=== PATIENT | female | born 1955 | race Caucasian/White ===

== ENCOUNTER 2019-09-08 03:31 | Observation (INO) ==
[2019-09-08] MEDS ORDERED: 0.9 % Sodium Chloride 1,000 ML IVC ONE (04:09)
[2019-09-08] MEDS ORDERED: Ondansetron 4 MG/2 ML VIAL IVP ONE (04:09)
[2019-09-08 04:31] LABS: White Blood Count 6.5 K/mcL (4.3-11.1)
[2019-09-08 04:32] LABS: Basophils % 0.5 %; Eosinophils # 0.1 K/mcL (0.0-0.6); Eosinophils % 1.4 %; Hemoglobin 11.9 g/dL (11.5-15.4); Immature Granulocytes % 0.9 % (0-4); Lymphocytes # 1.7 K/mcL (0.6-4.6); Lymphocytes % 26.4 %; Mean Corpuscular Hemoglobin 28.1 pg (28.0-33.3); Mean Corpuscular Volume 82.7 fL (83.0-100.0); Mean Platelet Volume 10.1 fL (9.4-12.4); Monocytes # 0.8 K/mcL (0.0-1.3); Monocytes % 12.1 %; Neutrophils # 3.8 K/mcL (1.6-8.9); Platelet Count 196 K/mcL (140-400); Red Blood Count 4.23 M/mcL (3.82-4.97); Red Cell Distribution Width 14.4 % (11.5-14.5); Segmented Neutrophils % 58.7 %
[2019-09-08 04:36] LABS: VBG HCO3 26 mEq/L (21-27); VBG PCO2 32 mmHg (41-51); VBG PH 7.53 pH Units (7.32-7.42); VBG PO2 44 mmHg (25-50)
[2019-09-08 04:45] LABS: Bilirubin,Urine Negative (Negative); Blood,Urine Negative (Negative); Clarity,Urine Clear (Clear); Color,Urine Yellow (Yellow); Glucose,Urine (UA) 500 mg/dL (Normal); Ketones,Urine Negative (Negative); Leukocyte Esterase,Urine Negative (Negative); Nitrite,Urine Negative (Negative); PH,Urine 8.5 pH Units (5.0-8.0); Protein,Urine Negative (Neg-Trace); Specific Gravity,Urine 1.015 (1.010-1.025); Urobilinogen,Urine Normal (Normal)
[2019-09-08 05:09] LABS: Alanine Aminotransferase 10 Units/L (7-52); Albumin 3.6 g/dL (3.5-5.7); Albumin/Globulin Ratio 1.2 (1.1-2.2); Alkaline Phosphatase 49 Units/L (34-104); Amylase 30 Units/L (29-103); Aspartate Amino Transferase 12 Units/L (13-39); BUN/Creatinine Ratio 22 (6-26); Bilirubin,Direct 0.1 mg/dL (0.0-0.2); Bilirubin,Indirect 0.4 mg/dL (0.0-1.0); Bilirubin,Total 0.5 mg/dL (0.3-1.0); Blood Urea Nitrogen 17 mg/dL (8-23); Calcium 9.1 mg/dL (8.6-10.3); Carbon Dioxide 27 mEq/L (23-29); Chloride 93 mEq/L (98-107); Globulin 2.9 g/dL (2.4-3.5); Glucose 514 mg/dL (70-105); Lipase 40 Units/L (11-82); Osmolality,Calculated 289 (280-300); Potassium 4.1 mEq/L (3.5-5.1); Sodium 127 mEq/L (136-145); Total Protein 6.5 g/dL (6.4-8.9); eGFR For African Americans > 60 (> 60); eGFR For Non-African Americans > 60 (> 60)
[2019-09-08] MEDS ORDERED: Insulin Human Regular 8 UNIT in 0.9 % Sodium Chloride 10 ML IV ONE (05:12)
[2019-09-08] MEDS ORDERED: Insulin Human Regular 10 UNIT in 0.9 % Sodium Chloride 10 ML IV ONE (06:49)
[2019-09-08] MEDS ORDERED: methylPREDNISolone 125 MG in 0.9 % Sodium Chloride 100 ML IVPB ONE (06:52)
[2019-09-08] MEDS ORDERED: methylPREDNISolone 125 MG/2 ML VIAL IVP ONE (07:00)
[2019-09-08] MEDS ORDERED: Naloxone 0.4 MG/ML INJ IVP PRN (08:07)
[2019-09-08] MEDS ORDERED: Ondansetron 4 MG/2 ML VIAL IVP PRN (08:07)
[2019-09-08] MEDS: 0.9 % Sodium Chloride 1,000 ML IVC SCH ×2 (08:30→16:46)
[2019-09-08] MEDS ORDERED: *HR* Dextrose 50 % in Water (Syg) 50 ML SYRINGE IVP PRN (09:42)
[2019-09-08] MEDS ORDERED: Dextrose Gel 15 GM/37.5 ML TUBE PO PRN ×2 (09:42)
[2019-09-08] MEDS ORDERED: D5% in Water 1,000 ML IVC PRN (09:42)
[2019-09-08] MEDS: Insulin LISPRO 300 UNITS/3 ML VIAL SQ SCH ×4 (10:31→17:09)
[2019-09-08] MEDS ORDERED: Insulin LISPRO 300 UNITS/3 ML VIAL SQ SCH ×2 (21:00)
[2019-09-08] MEDS: Apixaban 5 MG TABLET PO SCH (21:46)
[2019-09-09] MEDS: Insulin LISPRO 300 UNITS/3 ML VIAL SQ SCH ×3 (05:07→17:40)
[2019-09-09] MEDS: *HR* Labetalol 20 MG/4 ML SYRINGE IVP PRN (05:07)
[2019-09-09] MEDS: Apixaban 5 MG TABLET PO SCH ×2 (07:57→20:28)
[2019-09-09] MEDS ORDERED: Insulin LISPRO 300 UNITS/3 ML VIAL SQ ONE (14:06)
[2019-09-09] MEDS: Insulin DETEMIR 100 UNIT/ML X5UNITS SQ SCH (20:33)
[2019-09-10] MEDS: *HR* Labetalol 20 MG/4 ML SYRINGE IVP PRN
[2019-09-10] MEDS: Insulin LISPRO 300 UNITS/3 ML VIAL SQ SCH ×2 (05:55)
[2019-09-10 09:55] VITALS: BP 121/70
[2019-09-10] MEDS: Insulin DETEMIR 100 UNIT/ML X5UNITS SQ SCH (09:55)
[2019-09-10] MEDS: Apixaban 5 MG TABLET PO SCH (09:55)
== END 2019-09-10 11:35 | disposition home or self-care (01) ==
LOC: INPGRE 03:31 → EMEROOGRE 03:31 → INPGRE 07:58
PROVIDERS: ADMIT Family Medicine; ATTEND Family Medicine

== ENCOUNTER 2021-06-30 10:07 | Inpatient (IN) ==
[2021-06-30 11:13] LABS: Basophils % 0.5 %; Eosinophils # 0.5 K/mcL (0.0-0.6); Eosinophils % 6.1 %; Hematocrit 37.5 % (35.3-44.9); Hemoglobin 12.4 g/dL (11.5-15.4); Immature Granulocytes % 0.6 % (0-4); Lymphocytes % 24.2 %; Mean Corpuscular HGB Conc 33.1 g/dL (31.6-35.5); Mean Corpuscular Hemoglobin 27.7 pg (28.0-33.3); Mean Corpuscular Volume 83.9 fL (83.0-100.0); Mean Platelet Volume 10.5 fL (9.4-12.4); Monocytes # 0.6 K/mcL (0.0-1.3); Monocytes % 7.2 %; Platelet Count 204 K/mcL (140-400); Red Blood Count 4.47 M/mcL (3.82-4.97); Red Cell Distribution Width 13.8 % (11.5-14.5); Segmented Neutrophils % 61.4 %; White Blood Count 8.1 K/mcL (4.3-11.1)
[2021-06-30 11:21] LABS: INR 1.1; Prothrombin Time 12.2 Seconds (9.4-12.1)
[2021-06-30 11:24] LABS: Activated Partial Thrombo Time 27.3 Seconds (26.0-36.0)
[2021-06-30 11:55] LABS: Alanine Aminotransferase 8 Units/L (7-52); Albumin 3.5 g/dL (3.5-5.7); Albumin/Globulin Ratio 0.9 (1.1-2.2); Alkaline Phosphatase 73 Units/L (34-104); Aspartate Amino Transferase 9 Units/L (13-39); BUN/Creatinine Ratio 29 (6-26); Bilirubin,Total 0.6 mg/dL (0.3-1.0); Blood Urea Nitrogen 21 mg/dL (8-23); Calcium 8.9 mg/dL (8.6-10.3); Carbon Dioxide 24 mEq/L (23-29); Chloride 96 mEq/L (98-107); Globulin 3.8 g/dL (2.4-3.5); Glucose 457 mg/dL (70-105); Magnesium 1.6 mg/dL (1.6-2.6); Osmolality,Calculated 291 (280-300); Phosphorous 2.5 mg/dL (2.7-4.5); Sodium 129 mEq/L (136-145); Total Protein 7.3 g/dL (6.4-8.9); eGFR For African Americans > 60 (> 60); eGFR For Non-African Americans > 60 (> 60)
[2021-06-30] MEDS ORDERED: 0.9 % Sodium Chloride 1,000 ML IV ONE (12:19)
[2021-06-30] MEDS ORDERED: Insulin Human Regular 10 UNIT in 0.9 % Sodium Chloride 10 ML IV ONE (12:19)
[2021-06-30] MEDS ORDERED: levoFLOXacin 750 MG/150 ML 750 MG/150 ML BAG IVPB SCH (12:30)
[2021-06-30] MEDS ORDERED: hydrOXYzine pamoate 25 MG CAPSULE PO STA (12:34)
[2021-06-30] MEDS ORDERED: Isovue-370 500 ML BOTTLE IVP ONE (13:37)
[2021-06-30] MEDS ORDERED: Mag Hydrox/Al Hydrox/Simeth 30 ML UDC PO PRN (14:16)
[2021-06-30] MEDS ORDERED: Melatonin 3 MG TABLET PO PRN (14:16)
[2021-06-30] MEDS ORDERED: Ondansetron 4 MG/2 ML VIAL IVP PRN (14:16)
[2021-06-30] MEDS ORDERED: Ondansetron ODT 4 MG TAB.RAPDIS SL PRN (14:16)
[2021-06-30] MEDS ORDERED: Naloxone 0.4 MG/ML INJ IVP PRN (14:16)
[2021-06-30] MEDS ORDERED: MOM Conc 10 ML UD.LIQ PO PRN (14:16)
[2021-06-30] MEDS ORDERED: *HR* Dextrose 50 % in Water (Syg) 50 ML SYRINGE IVP PRN (14:22)
[2021-06-30] MEDS ORDERED: Dextrose Gel 15 GM/37.5 ML TUBE PO PRN ×2 (14:22)
[2021-06-30] MEDS ORDERED: D5% in Water 1,000 ML IVC PRN (14:22)
[2021-06-30] MEDS ORDERED: Vancomycin 1,250 MG/262.5 ML IV.SOLN IVPB SCH (15:00)
[2021-06-30] MEDS ORDERED: Piperacillin/Tazobactam 3.375 GM in 0.9 % Sodium Chloride Mini Bag 100 ML IVPB SCH (16:00)
[2021-06-30] MEDS ORDERED: Insulin LISPRO 300 UNITS/3 ML VIAL SUBQ SCH (17:00)
[2021-06-30] MEDS: 0.9 % Sodium Chloride 1,000 ML IVC SCH (17:15)
[2021-06-30] MEDS: Insulin LISPRO 300 UNITS/3 ML VIAL SUBQ SCH ×2 (17:30→21:53)
[2021-06-30] MEDS ORDERED: methylPREDNISolone 125 MG/2 ML VIAL IVP ONE (19:38)
[2021-06-30] MEDS ORDERED: Insulin DETEMIR 100 UNIT/ML per UNIT SUBQ ONE (21:00)
[2021-06-30] MEDS: Apixaban 5 MG TABLET PO SCH (22:02)
[2021-06-30 22:13] LABS: Bilirubin,Urine Negative (Negative); Blood,Urine Small (Negative); Clarity,Urine Slightly Cloudy (Clear); Glucose,Urine (UA) 100 mg/dL (Normal); Ketones,Urine Negative (Negative); Leukocyte Esterase,Urine Small (Negative); Nitrite,Urine Positive (Negative); PH,Urine 6.5 pH Units (5.0-8.0); Protein,Urine 100 mg/dL (Neg-Trace); Urobilinogen,Urine Normal (Normal)
[2021-06-30 22:14] LABS: Color,Urine Yellow (Yellow); Squamous Epithelial Cell,Urine Few per hpf (None-Few)
[2021-06-30 22:15] LABS: Amorphous Sediment,Urine Few per hpf (None-Few); Bacteria,Urine Moderate per hpf (None-Few)
[2021-07-01 04:53] LABS: Basophils % 0.3 %; Eosinophils # 0.1 K/mcL (0.0-0.6); Eosinophils % 1.2 %; Hematocrit 34.8 % (35.3-44.9); Hemoglobin 11.4 g/dL (11.5-15.4); Lymphocytes # 1.1 K/mcL (0.6-4.6); Lymphocytes % 18.1 %; Mean Corpuscular HGB Conc 32.8 g/dL (31.6-35.5); Mean Corpuscular Hemoglobin 27.3 pg (28.0-33.3); Mean Corpuscular Volume 83.5 fL (83.0-100.0); Mean Platelet Volume 10.2 fL (9.4-12.4); Monocytes # 0.1 K/mcL (0.0-1.3); Neutrophils # 4.7 K/mcL (1.6-8.9); Platelet Count 170 K/mcL (140-400); Red Blood Count 4.17 M/mcL (3.82-4.97); Red Cell Distribution Width 13.6 % (11.5-14.5); Segmented Neutrophils % 77.4 %
[2021-07-01 05:09] LABS: Alanine Aminotransferase 7 Units/L (7-52); Albumin 3.1 g/dL (3.5-5.7); Alkaline Phosphatase 61 Units/L (34-104); Aspartate Amino Transferase 10 Units/L (13-39); BUN/Creatinine Ratio 35 (6-26); Bilirubin,Total 0.3 mg/dL (0.3-1.0); Blood Urea Nitrogen 27 mg/dL (8-23); Calcium 8.4 mg/dL (8.6-10.3); Carbon Dioxide 19 mEq/L (23-29); Chloride 101 mEq/L (98-107); Cholesterol 252 mg/dL (< 200); Globulin 3.2 g/dL (2.4-3.5); Glucose 427 mg/dL (70-105); HDL Cholesterol 36 mg/dL (40-59); LDL Cholesterol,Calculated 195 mg/dL (< 100); Magnesium 1.7 mg/dL (1.6-2.6); Osmolality,Calculated 295 (280-300); Phosphorous 4.1 mg/dL (2.7-4.5); Potassium 4.6 mEq/L (3.5-5.1); Sodium 131 mEq/L (136-145); Total Protein 6.3 g/dL (6.4-8.9); Triglycerides 106 mg/dL (< 150); eGFR For African Americans > 60 (> 60); eGFR For Non-African Americans > 60 (> 60)
[2021-07-01] MEDS: Apixaban 5 MG TABLET PO SCH ×2 (09:18→21:05)
[2021-07-01] MEDS: Insulin LISPRO 300 UNITS/3 ML VIAL SUBQ SCH ×4 (09:18→21:07)
[2021-07-01] MEDS: Patient Taking Own Medication 1 EACH SQ SCH (09:20)
[2021-07-01] MEDS: Insulin DETEMIR 100 UNIT/ML X5UNITS SUBQ SCH ×2 (09:24→21:08)
[2021-07-01 09:28] LABS: Estimated Average Glucose 237 mg/dl; Hemoglobin A1C 9.9 %
[2021-07-01] MEDS ORDERED: Insulin LISPRO 300 UNITS/3 ML VIAL SUBQ SCH (22:37)
[2021-07-02] MEDS: 0.9 % Sodium Chloride 1,000 ML IVC SCH (07:39)
[2021-07-02] MEDS: Insulin LISPRO 300 UNITS/3 ML VIAL SUBQ SCH ×3 (07:41→17:20)
[2021-07-02] MEDS: Patient Taking Own Medication 1 EACH SQ SCH (08:40)
[2021-07-02] MEDS: Apixaban 5 MG TABLET PO SCH ×2 (08:41→20:39)
[2021-07-02] MEDS: Insulin DETEMIR 100 UNIT/ML X5UNITS SUBQ SCH ×2 (09:10→20:40)
[2021-07-02] MEDS ORDERED: Cefepime HCl 1,000 MG in 0.9 % Sodium Chloride Mini Bag 100 ML IVPB SCH (11:00)
[2021-07-02] MEDS: Cefepime HCl 1,000 MG in 0.9 % Sodium Chloride Mini Bag 100 ML IVPB SCH (17:20)
[2021-07-03] MEDS: Cefepime HCl 1,000 MG in 0.9 % Sodium Chloride Mini Bag 100 ML IVPB SCH ×2 (01:43→08:37)
[2021-07-03 05:58] LABS: Hematocrit 34.7 % (35.3-44.9); Hemoglobin 10.9 g/dL (11.5-15.4); Mean Corpuscular HGB Conc 31.4 g/dL (31.6-35.5); Mean Corpuscular Hemoglobin 26.7 pg (28.0-33.3); Mean Platelet Volume 9.9 fL (9.4-12.4); Platelet Count 209 K/mcL (140-400); Red Blood Count 4.08 M/mcL (3.82-4.97)
[2021-07-03 06:15] LABS: Alanine Aminotransferase 12 Units/L (7-52); Albumin 3.1 g/dL (3.5-5.7); Albumin/Globulin Ratio 0.9 (1.1-2.2); Alkaline Phosphatase 60 Units/L (34-104); Aspartate Amino Transferase 19 Units/L (13-39); BUN/Creatinine Ratio 31 (6-26); Bilirubin,Total 0.3 mg/dL (0.3-1.0); Blood Urea Nitrogen 20 mg/dL (8-23); Calcium 8.5 mg/dL (8.6-10.3); Carbon Dioxide 22 mEq/L (23-29); Chloride 108 mEq/L (98-107); Globulin 3.3 g/dL (2.4-3.5); Glucose 67 mg/dL (70-105); Magnesium 1.7 mg/dL (1.6-2.6); Osmolality,Calculated 285 (280-300); Sodium 137 mEq/L (136-145); Total Protein 6.4 g/dL (6.4-8.9); eGFR For African Americans > 60 (> 60); eGFR For Non-African Americans > 60 (> 60)
[2021-07-03 07:37] VITALS: RESP 16
[2021-07-03] MEDS: Insulin LISPRO 300 UNITS/3 ML VIAL SUBQ SCH ×2 (08:26→12:53)
[2021-07-03] MEDS: Insulin DETEMIR 100 UNIT/ML X5UNITS SUBQ SCH (08:37)
[2021-07-03] MEDS: Apixaban 5 MG TABLET PO SCH (08:48)
[2021-07-03] MEDS: Patient Taking Own Medication 1 EACH SQ SCH (08:48)
[2021-07-03 11:52] VITALS: BP 124/78; PULSE 66; TEMP 98.3; O2SAT 97
== END 2021-07-03 13:45 | disposition home or self-care (01) | DRG 603 ==
LOC: EMEROOGRE 10:07 → INPGRE 10:07
PROVIDERS: ADMIT Family Medicine; ATTEND Family Medicine